=== PATIENT | female | born 1970 | race Caucasian/White ===

== ENCOUNTER 2016-08-23 13:30 | Emergency (ER) | payer OTHER ==
--- NOTE | 2016-08-30 07:12 | UC ---
Psychiatric Complaint HPI - HPI Summary HPI Summary: hx of anxiety and depression for years out of her meds requesting a refill of her medications - History Of Current Complaint Stated Complaint: MED REFILL Time Seen by Provider: 08/23/16 14:14 Hx Obtained From: Patient Hx Last Menstrual Period: 05/05/16 Onset/Duration: Gradual Onset, Still Present Timing: Constant Severity Initially: Moderate Severity Currently: Moderate Character: Depressed, Anxious Aggravating Factor(s): Nothing Alleviating Factor(s): Medication Related History: Positive For: Prior Psychiatric Issues Negative For: Drug Abuse Counseling, Admissions Related To Substance Abuse - Allergies/Home Medications Allergies/Adverse Reactions: Allergies Allergy/AdvReac Type Severity Reaction Status Date / Time No Known Allergies Allergy Verified 05/25/16 10:16 PMH/Surg Hx/FS Hx/Imm Hx Psychological History Of: Reports: Anxiety, Depression - Surgical History Surgical History: None - Family History Known Family History: Positive: Hypertension - Social History Alcohol Use: Occasionally Substance Use Type: None Smoking Status (MU): Never Smoked Tobacco Review of Systems Constitutional: Negative Skin: Negative Eyes: Negative ENT: Negative Respiratory: Negative Cardiovascular: Negative Gastrointestinal: Negative Psychological: Anxious, Depressed All Other Systems Reviewed And Are Negative: Yes Physical Exam Triage Information Reviewed: Yes Appearance: Well-Appearing, No Pain Distress, Well-Nourished Eye Exam: Normal Eyes: Positive: Conjunctiva Clear ENT: Positive: Normal ENT inspection, Hearing grossly normal, Pharynx normal Neck: Positive: Supple, Nontender, No Lymphadenopathy Respiratory: Positive: Chest non-tender, Lungs clear, Normal breath sounds Cardiovascular: Positive: RRR, No Murmur, Pulses Normal Abdominal Exam: Normal Psychological Exam: Normal Psychological: Positive: Age Appropriate Behavior Skin Exam: Normal UC Physical Exam - Psychiatric Exam Psychiatric: Normal Mood: Anxious Appearance: Anxious Thought Process: Logical Memory: Intact Judgement: Normal Psych Complaint Course/Dx - Differential Dx/Diagnosis Provider Diagnoses: anxiety Discharge - Discharge Plan Condition: Stable Disposition: HOME Prescriptions: Dextroamphetamine Sulfate [Zenzedi] 30 mg PO BID #60 tab MDD 60 daily Lorazepam [Ativan] 1 mg PO TID PRN #60 tab MDD 3 mg daily PRN Reason: Anxiety Venlafaxine CAP (NF) [Effexor CAP (NF)] 75 mg PO DAILY #30 tab Patient Education Materials: Anxiety (ED) Referrals: Non Staff,Doctor [Primary Care Provider] - As Soon As Possible
== END 2016-08-23 14:33 | disposition home or self-care (01) ==
LOC: UCCORT 13:30
DX: F41.9 Anxiety disorder, unspecified (principal)
CPT/HCPCS: 99212; G0463

== ENCOUNTER 2017-03-09 10:59 | Emergency (ER) | payer OTHER ==
[2017-03-09 11:08] VITALS: BP 122/86
--- NOTE | 2017-03-09 11:16 | UC ---
Complaint Female HPI - HPI Summary HPI Summary: complaint of burning with urination increased frequency and urgency of urination feells faitigued entire body feels achy states she might have had a fever taking tylenol for the last 4 days weith relief LMP 02/22/17-not sexually active - History Of Current Complaint Chief Complaint: UCGeneralIllness Stated Complaint: URINARY Time Seen by Provider: 03/09/17 11:05 Hx Obtained From: Patient Hx Last Menstrual Period: 02/22/17 - Allergies/Home Medications Allergies/Adverse Reactions: Allergies Allergy/AdvReac Type Severity Reaction Status Date / Time No Known Allergies Allergy Verified 03/09/17 11:07 PMH/Surg Hx/FS Hx/Imm Hx Previously Healthy: Yes Psychological History: Anxiety - Surgical History Surgical History: None - Family History Known Family History: Positive: Hypertension Negative: Cardiac Disease, Diabetes - Social History Occupation: Employed Full-time Lives: With Family Alcohol Use: Rare Substance Use Type: Prescribed Smoking Status (MU): Never Smoked Tobacco Review of Systems Constitutional: Fever, Chills Skin: Negative Eyes: Negative ENT: Negative Respiratory: Negative Cardiovascular: Negative Gastrointestinal: Negative Genitourinary: Dysuria, Frequency, Urgency Motor: Negative Neurovascular: Negative Musculoskeletal: Negative Neurological: Negative Psychological: Negative All Other Systems Reviewed And Are Negative: Yes Physical Exam Triage Information Reviewed: Yes Appearance: No Pain Distress, Well-Nourished Vital Signs: Initial Vital Signs Temp 97.8 F 03/09/17 11:03 Pulse 101 03/09/17 11:03 Resp 18 03/09/17 11:03 BP 122/86 03/09/17 11:03 Pulse Ox 98 03/09/17 11:03 Vital Signs Reviewed: Yes Eyes: Positive: Conjunctiva Clear ENT: Positive: Pharynx normal, TMs normal Neck: Positive: No Lymphadenopathy Respiratory: Positive: Lungs clear, Normal breath sounds, No respiratory distress, No accessory muscle use Cardiovascular: Positive: RRR, No Murmur, Pulses Normal Abdomen Description: Positive: Nontender, No Organomegaly, Soft. Negative: CVA Tenderness (R), CVA Tenderness (L), Distended, Guarding Musculoskeletal: Positive: No Edema Neurological: Positive: Alert Psychological Exam: Normal Skin Exam: Normal Complaint Female Dx - Differential Dx/Diagnosis Differential Diagnosis/HQI/PQRI: Urinary Tract Infection Provider Diagnoses: UTI Discharge - Discharge Plan Condition: Stable Disposition: HOME Prescriptions: Phenazopyridine TAB* [Pyridium 100 mg TAB*] 100 mg PO TID #6 tab Sulfamethox/Trimethoprim DS* [Bactrim DS 800/160 TAB*] 1 tab PO BID #6 tab Referrals: Non Staff,Doctor [Primary Care Provider] - [facility] [Outside] Additional Instructions: Please start antibiotic as directed Increase fluids and rest Take acetaminophen or ibuprofen for fever or pain Please review your discharge instructions. If your symptoms do not improve please call your primary care provider or return to urgent care.
== END 2017-03-09 11:35 | disposition home or self-care (01) ==
LOC: UCCORT 10:59
DX: N39.0 Urinary tract infection, site not specified (principal); R53.83 Other fatigue; F41.9 Anxiety disorder, unspecified
CPT/HCPCS: 81003; 87086; 99212; G0463

== ENCOUNTER 2017-03-12 10:56 | Inpatient (IN) | payer OTHER ==
[2017-03-12] MEDS ORDERED: Ondansetron INJ* 2 MG/ML VIAL IV ONE (11:19)
[2017-03-12] MEDS ORDERED: cefTRIAXone(*) 1 GM in NS 0.9% 50 ML* 50 ML IVPB ONE (11:19)
[2017-03-12 11:45] LABS: Hematocrit 41 % (35-47); Hemoglobin 13.6 g/dl (12.0-16.0); Mean Corpuscular HGB Conc 33 g/dl (31-36); Mean Corpuscular Hemoglobin 31 pg (27-31); Mean Corpuscular Volume 93 fL (80-97); Mean Platelet Volume 9 um3 (7.4-10.4); Red Cell Distribution Width 13 % (10.5-15); White Blood Count 16.7 10^3/ul (3.5-10.8)
[2017-03-12 11:46] LABS: Add Diff/Slide Review? Slide Review Added
[2017-03-12] MEDS: NS 0.9% 1000 ML* 2,000 ML IV ONE (11:49)
[2017-03-12 11:52] LABS: Albumin 3.4 g/dL (3.2-5.2); BUN/Creatinine Ratio 9.5 (8-20); C Reactive Protein 213.19 mg/L (< 5.00); Calcium 9.1 mg/dL (8.6-10.3); EGFR African American 107.7 (>60); EGFR Non-African American 83.8 (>60); Globulin 3.8 g/dL (2-4); Potassium 3.1 mmol/L (3.5-5.0); Total Bilirubin 0.5 mg/dL (0.2-1.0); Total Protein 7.2 g/dL (6.4-8.9)
--- NOTE | 2017-03-12 11:52 | RAD ---
Indication: Urinary tract infection. Tachycardia. Comparison: No relevant prior exams available on the [facility] for comparison. Technique: Upright AP 1120 hours Report: Clear lungs and pleural spaces. Negative for pneumothorax. The heart, pulmonary vasculature, and mediastinal contours are unremarkable. Unremarkable osseous structures and soft tissue contours. IMPRESSION: No evidence for acute intrathoracic disease.
[2017-03-12 12:16] LABS: Magnesium 1.9 mg/dL (1.9-2.7)
[2017-03-12 12:23] LABS: Erythrocyte Sed Rate 93 mm/Hr (0-14)
[2017-03-12] MEDS ORDERED: Potassium Chlor TAB* 20 MEQ TAB.ER PO ONE (12:28)
[2017-03-12] MEDS ORDERED: KCL 10 MEQ/50 ML IVPREMIX* 10 MEQ/50 ML BAG IV ONE (12:29)
[2017-03-12] MEDS ORDERED: Iohexol 350* (CONTRAST) 500 ML MDV IV ONE (13:09)
[2017-03-12] MEDS ORDERED: Acetaminophen TAB* 325 MG PO ONE (13:50)
[2017-03-12 13:55] LABS: Urine Bacteria 1+ (Absent); Urine Bilirubin Negative (Negative); Urine Glucose Negative (Negative); Urine Nitrite Positive (Negative)
--- NOTE | 2017-03-12 14:02 | RAD ---
INDICATION: Tachypnea. COMPARISON: Chest radiograph of the same date. TECHNIQUE: Multidetector CT images were obtained from the lung apices to the upper abdomen with 67 mL Omnipaque 350 IV contrast. Pulmonary angiogram protocol. Multiplanar reformation including with maximum intensity projection. REPORT: Atelectasis of the anteromedial basal segment of the LEFT lower lobe. Minimal bilateral dependent atelectasis. No focal pulmonary lesions. Negative for central endobronchial lesions. Negative for pleural effusion or pneumothorax. Negative for thoracic lymphadenopathy. Upper normal heart size. Negative for pericardial effusion. Normal diameter thoracic aorta. No filling defects are identified from the main to the subsegmental pulmonary arteries to indicate presence of a pulmonary embolism. Unremarkable Limited images through the upper abdomen. Negative for thoracic fractures or suspicious osseous lesions. IMPRESSION: 1. Negative for pulmonary embolism. 2. Atelectasis of the anteromedial basal segment of the LEFT lower lobe.
[2017-03-12] MEDS ORDERED: Phenazopyridine TAB* 100 MG PO PRN (15:07)
[2017-03-12] MEDS: NS 0.9% 1000 ML* 1,000 ML IV SCH (17:03)
--- NOTE | 2017-03-12 18:43 | ED ---
Reyna Fields Alfonso, scribed for Reed Harvey MD on 03/12/17 at 1119 . Abdominal Pain/Female - HPI Summary HPI Summary: This patient is a 46 year old F presenting to [facility] with a chief complaint of lower abdominal pain since this morning. The patient rates the pain 8/10 in severity. Symptoms aggravated and alleviated by nothing. 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 The patient reports fever, chills, diaphoresis, nausea, back pain, dizziness, tiredness, dysuria, and vaginal soreness. The patient denies CP, SOB, vomiting, diarrhea, and vaginal discharge. She reports taking abx for the last 3 days for a possible UTI. LNMP 02/22/17. PMHx of anxiety and depression. - History of Current Complaint Chief Complaint: EDGeneral Stated Complaint: POSSIBLE UTI Time Seen by Provider: 03/12/17 11:11 Hx Obtained From: Patient Hx Last Menstrual Period: 02/22/17 Onset/Duration: Sudden Onset, Lasting Hours - This morning, Still Present Timing: Constant Severity Initially: Moderate Severity Currently: Moderate Pain Intensity: 8 Pain Scale Used: 0-10 Numeric Location: Other - Lower Aggravating Factor(s): Nothing Alleviating Factor(s): Nothing Associated Signs and Symptoms: Positive: Other: - The patient reports fever, chills, diaphoresis, nausea, back pain, dizziness, tiredness, dysuria, and vaginal soreness. The patient denies CP, SOB, vomiting, diarrhea, and vaginal discharge. Allergies/Adverse Reactions: Allergies Allergy/AdvReac Type Severity Reaction Status Date / Time No Known Allergies Allergy Verified 03/12/17 11:19 Home Medications: Home Medications Dextroamphetamine TAB* [Dexedrine TAB*] 10 mg PO BID 03/12/17 [History Confirmed 03/12/17] PMH/Surg Hx/FS Hx/Imm Hx Sensory History: Denies: Hx Deafness Opthamlomology History: Denies: Hx Legally Blind Psychiatric History: Reports: Hx Anxiety, Hx Depression Infectious Disease History: Denies: Traveled Outside the [place] in Last 30 Days - Family History Known Family History: Positive: Hypertension Negative: Cardiac Disease, Diabetes - Social History Alcohol Use: Rare Substance Use Type: Reports: Prescribed Smoking Status (MU): Never Smoked Tobacco Review of Systems Positive: Fever, Chills, Skin Diaphoresis Negative: Chest Pain Negative: Shortness Of Breath Positive: Abdominal Pain - Lower, Nausea. Negative: Vomiting, Diarrhea Positive: other - Positive dysuria and vaginal soreness; negative vaginal discharge. Positive: Other - Positive back pain Neurological: Other - Positive dizziness and tiredness All Other Systems Reviewed And Are Negative: Yes Physical Exam - Summary Physical Exam Summary: VITAL SIGNS: Reviewed. GENERAL: Patient is a well-developed and nourished female who is lying comfortable in the stretcher. Patient is not in any acute respiratory distress. HEAD AND FACE: Normocephalic and atraumatic. EYES: PERRLA, EOMI x 2, No injected conjunctiva. EARS: Hearing grossly intact. Ear canals and tympanic membranes are WNL. MOUTH: Oropharynx within normal limits. NECK: Supple, trachea is midline, no adenopathy, no JVD. CHEST: Symmetric, no tenderness at palpation LUNGS: Clear to auscultation bilaterally. No wheezing or crackles. CVS: Tachycardia, S1 and S2 present, no murmurs or gallops appreciated. ABDOMEN: Soft, non-tender. No signs of distention. Positive bowel sounds. No rebound no guarding, and no masses palpated. No abdominal bruit or pulsations. EXTREMITIES: FROM in all major joints, no edema, no cyanosis or clubbing. NEURO: Alert and oriented x 3. No acute neurological deficits. Speech is normal. SKIN: Dry and warm Triage Information Reviewed: Yes Vital Signs On Initial Exam: Initial Vitals Temp Pulse Resp BP Pulse Ox 98.9 F 140 20 130/94 98 03/12/17 10:58 03/12/17 10:58 03/12/17 10:58 03/12/17 10:58 03/12/17 10:58 Vital Signs Reviewed: Yes Diagnostics - Vital Signs Vital Signs Temp Pulse Resp BP Pulse Ox 03/12/17 10:58 98.9 F 140 20 130/94 98 - Laboratory Lab Results: Lab Results 03/12/17 03/12/17 03/12/17 Range/Units 11:26 11:26 11:26 WBC 16.7 H (3.5-10.8) 10^3/ul RBC 4.40 (4.0-5.4) 10^6/ul Hgb 13.6 (12.0-16.0) g/dl Hct 41 (35-47) % MCV 93 (80-97) fL MCH 31 (27-31) pg MCHC 33 (31-36) g/dl RDW 13 (10.5-15) % Plt Count 312 (150-450) 10^3/ul MPV 9 (7.4-10.4) um3 Neut % (Auto) 76.1 (38-83) % Lymph % (Auto) 10.8 L (25-47) % [place] % (Auto) 12.5 H (1-9) % Eos % (Auto) 0.1 (0-6) % Baso % (Auto) 0.5 (0-2) % Absolute Neuts (auto) 12.7 H (1.5-7.7) 10^3/ul Absolute Lymphs (auto) 1.8 (1.0-4.8) 10^3/ul Absolute Monos (auto) 2.1 H (0-0.8) 10^3/ul Absolute Eos (auto) 0 (0-0.6) 10^3/ul Absolute Basos (auto) 0.1 (0-0.2) 10^3/ul Absolute Nucleated RBC 0.01 10^3/ul Nucleated RBC % 0 ESR 93 H (0-14) mm/Hr INR (Anticoag Therapy) 1.00 (0.89-1.11) APTT 27.4 (26.0-36.3) seconds Fibrinogen 542 H (110.8-404.3) mg/dL Sodium 129 L (133-145) mmol/L Potassium 3.1 L (3.5-5.0) mmol/L Chloride 94 L (101-111) mmol/L Carbon Dioxide 26 (22-32) mmol/L Anion Gap 9 (2-11) mmol/L BUN 7 (6-24) mg/dL Creatinine 0.74 (0.51-0.95) mg/dL Est GFR ( Amer) 107.7 (>60) Est GFR (Non-Af Amer) 83.8 (>60) BUN/Creatinine Ratio 9.5 (8-20) Glucose 97 (70-100) mg/dL Lactic Acid (0.5-2.0) mmol/L Calcium 9.1 (8.6-10.3) mg/dL Magnesium 1.9 (1.9-2.7) mg/dL Total Bilirubin 0.50 (0.2-1.0) mg/dL AST 81 H (13-39) U/L ALT 128 H (7-52) U/L Alkaline Phosphatase 332 H (34-104) U/L C-Reactive Protein 213.19 H (< 5.00) mg/L Total Protein 7.2 (6.4-8.9) g/dL Albumin 3.4 (3.2-5.2) g/dL Globulin 3.8 (2-4) g/dL Albumin/Globulin Ratio 0.9 L (1-3) Urine Color Urine Appearance Urine pH (5-9) Ur Specific [place] (1.010-1.030) Urine Protein (Negative) Urine Ketones (Negative) Urine Blood (Negative) Urine Nitrate (Negative) Urine Bilirubin (Negative) Urine Urobilinogen (Negative) Ur Leukocyte Esterase (Negative) Urine WBC (Auto) (Absent) Urine RBC (Auto) (Absent) Ur Squamous Epith Cells (Absent) Urine Bacteria (Absent) Urine Glucose (Negative) 03/12/17 03/12/17 Range/Units 11:26 13:20 WBC (3.5-10.8) 10^3/ul RBC (4.0-5.4) 10^6/ul Hgb (12.0-16.0) g/dl Hct (35-47) % MCV (80-97) fL MCH (27-31) pg MCHC (31-36) g/dl RDW (10.5-15) % Plt Count (150-450) 10^3/ul MPV (7.4-10.4) um3 Neut % (Auto) (38-83) % Lymph % (Auto) (25-47) % [place] % (Auto) (1-9) % Eos % (Auto) (0-6) % Baso % (Auto) (0-2) % Absolute Neuts (auto) (1.5-7.7) 10^3/ul Absolute Lymphs (auto) (1.0-4.8) 10^3/ul Absolute Monos (auto) (0-0.8) 10^3/ul Absolute Eos (auto) (0-0.6) 10^3/ul Absolute Basos (auto) (0-0.2) 10^3/ul Absolute Nucleated RBC 10^3/ul Nucleated RBC % ESR (0-14) mm/Hr INR (Anticoag Therapy) (0.89-1.11) APTT (26.0-36.3) seconds Fibrinogen (110.8-404.3) mg/dL Sodium (133-145) mmol/L Potassium (3.5-5.0) mmol/L Chloride (101-111) mmol/L Carbon Dioxide (22-32) mmol/L Anion Gap (2-11) mmol/L BUN (6-24) mg/dL Creatinine (0.51-0.95) mg/dL Est GFR ( Amer) (>60) Est GFR (Non-Af Amer) (>60) BUN/Creatinine Ratio (8-20) Glucose (70-100) mg/dL Lactic Acid 1.2 (0.5-2.0) mmol/L Calcium (8.6-10.3) mg/dL Magnesium (1.9-2.7) mg/dL Total Bilirubin (0.2-1.0) mg/dL AST (13-39) U/L ALT (7-52) U/L Alkaline Phosphatase (34-104) U/L C-Reactive Protein (< 5.00) mg/L Total Protein (6.4-8.9) g/dL Albumin (3.2-5.2) g/dL Globulin (2-4) g/dL Albumin/Globulin Ratio (1-3) Urine Color Rox Urine Appearance Clear Urine pH 7.0 (5-9) Ur Specific [place] 1.012 (1.010-1.030) Urine Protein Negative (Negative) Urine Ketones Negative (Negative) Urine Blood Negative (Negative) Urine Nitrate Positive H (Negative) Urine Bilirubin Negative (Negative) Urine Urobilinogen Negative (Negative) Ur Leukocyte Esterase Trace H (Negative) Urine WBC (Auto) 1+(6-10/hpf) H (Absent) Urine RBC (Auto) Absent (Absent) Ur Squamous Epith Cells Present H (Absent) Urine Bacteria 1+ H (Absent) Urine Glucose Negative (Negative) Result Diagrams: 03/12/17 11:26 03/12/17 11:26 Lab Statement: Any lab studies that have been ordered have been reviewed, and results considered in the medical decision making process. - Radiology CXR Radiology Interpretation Completed By: Radiologist - No evidence for acute intrathoracic disease. - CT CTA Chest/Thorax CT Interpretation Completed By: Radiologist - 1. Negative for pulmonary embolism. 2. Atelectasis of the anteromedial basal segment of the LEFT lower lobe. - EKG 1111 Cardiac Rate: Tachycardia - BPM 128 EKG Rhythm: Sinus Tachycardia EKG Interpretation: No ST elevation Re-Evaluation - Re-Evaluation First Eval Re-Evaluation Time: 12:59 Change: Improved Comment: Patient states she is feeling improved. She denies SOB. She denies recent travels. She does report bilateral calf pain. Second Eval Re-Evaluation Time: 14:04 Comment: Discussed possible admission with the patient. She understands and agrees. Abdominal Pain Fem Course/Dx - Course Course Of Treatment: This patient is a 46 year old F presenting to [facility] with a chief complaint of lower abdominal pain since this morning. The patient rates the pain 8/10 in severity. Symptoms aggravated and alleviated by nothing. 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 The patient reports fever, chills, diaphoresis, nausea, back pain, dizziness, tiredness, dysuria, and vaginal soreness. The patient denies CP , SOB, vomiting, diarrhea, and vaginal discharge. She reports taking abx for the last 3 days for a possible UTI. LNMP 02/22/17. PMHx of anxiety and depression. Test results show WBC 16.7 without bands, Fibrinogen of 542, Sodium of 129, potassium of 3.1, CRP of 213, and increased LFTs. Urinalysis positive for UTI. EKG reveals sinus tachycardia. CXR reveals No evidence for acute intrathoracic disease. In the ED course the patient was started with 2 liters IV fluid, Zofran, Rocephin, and potassium chloride. Patient continues to be tachycardia, and now she is febrile and tachypneic. At this time, I decide do a CTA to rule out PE since the patient was having bilateral calf pain. CTA Chest/Thorax reveals 1. Negative for pulmonary embolism. 2. Atelectasis of the anteromedial basal segment of the LEFT lower lobe. At this point, I believe the patient is dealing with UTI/ pyelonephritis. Therefore, I consulted Dr. Esquivel ( hospitalist) who agrees to admit the patient. Patient is alert and oriented to person, place, and time. - Diagnoses Differential Diagnosis: Positive: Renal Colic, Urinary Tract Infection, Other - Pyelonephritis Provider Diagnoses: UTI (urinary tract infection), Pyelonephritis - Provider Notifications Discussed Care Of Patient With: Fco Esquivel Time Discussed With Above Provider: 14:14 Instructed by Provider To: Other - Consulted Dr. Esquivel (hospitalist) who agrees to admit the patient. Discharge - Discharge Plan Condition: Stable Disposition: ADMITTED TO [facility] documentation as recorded by the Reyna harris Alfonso accurately reflects the service I personally performed and the decisions made by Wes aguilar Walter, MD.
[2017-03-12] MEDS ORDERED: LORazepam TAB(*) 1 MG PO PRN (19:33)
[2017-03-12] MEDS: Acetaminophen TAB* 325 MG PO PRN (20:20)
--- NOTE | 2017-03-12 20:50 | RAD ---
Indication: Dysuria, fever. Comparison: March 12, 2017 CT chest with only limited inclusion of the upper pole of the LEFT kidney. Technique: Renal ultrasound. Report: 12.7 x 6.8 x 6.5 cm RIGHT kidney. 12.8 x 5.6 x 6.1 cm LEFT kidney. Normal bilateral renal cortical echogenicity. No conspicuous stones or hydronephrosis. No visualized focal renal lesions. Negative for perinephric fluid. IMPRESSION: Negative renal ultrasound.
[2017-03-12] MEDS ORDERED: DEXTROAMPHETAMINE SULFATE 30 MG PO SCH (21:00)
[2017-03-12] MEDS ORDERED: DEXTROAMPHETAMINE 5 MG PO SCH (21:00)
[2017-03-12] MEDS: Ciprofloxacin TAB* 500 MG PO SCH (22:38)
--- NOTE | 2017-03-13 00:08 | HP ---
HOSPITAL MEDICINE HISTORY AND PHYSICAL: DATE OF ADMISSION: 03/12/17 PRIMARY CARE PHYSICIAN: None. ATTENDING PHYSICIAN: Dr. Fco Esquivel * (dictation provided by Hernandez Toth NP ). CHIEF COMPLAINT: Fever and dysuria. HISTORY OF PRESENT ILLNESS: Ms. Cruz is a 46-year-old female with a past medical history of urinary tract infection, depression, and anxiety who presented to the hospital today with concern for fever and dysuria. Ms. Cruz states that she originally was seen at [facility] on 03/09/17 for a complaint of dysuria. She had had at that point dysuria with lower abdominal pain for about 4 days. She had an UA there, which is reported to be positive and was prescribed Bactrim therapy. The patient reports that she completed a 3- day course of Bactrim, but despite this she has continued to have dysuria and lower abdominal pain. She is also now having fevers with chills. She reports feeling achy all over, but no specific back pain. She has been tolerating oral intake and drinking plenty of fluids. She denies any other complaints. In the emergency room, Mr. Cruz had a repeat urinalysis, which was positive for nitrite and trace leuk esterase. She was tachycardic with a heart rate running as high as 125. Blood pressure is stable, systolically running one teens to 150s. She has a white blood cell count elevated to 16.7, CRP of 213.19 , and then the ESR of 93. She also was mildly hypokalemic and hyponatremic with a sodium of 129 and a potassium of 3.1. PAST MEDICAL HISTORY: 1. UTI. 2. Depression. 3. Anxiety. MEDICATIONS: As outpatient: 1. Dextroamphetamine 40 mg p.o. b.i.d. 2. Ibuprofen 400 mg p.o. q.6 hours p.r.n. 3. Lorazepam 1 mg p.o. t.i.d. p.r.n. 4. Venlafaxine 25 mg p.o. daily. ALLERGIES: No known drug allergies. FAMILY HISTORY: The patient is adopted and does not know any other family history. SOCIAL HISTORY: No report of tobacco or drug use. The patient drinks alcohol occasionally. She lives with her son and . She states her would be the healthcare proxy. REVIEW OF SYSTEMS: A 14-point review of systems was completed with Ms. Cruz , and all those not mentioned above were negative. PHYSICAL EXAMINATION GENERAL: She is sitting at the bed. She is in no acute distress. VITAL SIGNS: Heart rate on arrival is 133. It is down now to 115. Blood pressure is currently 114/66, respiratory rate 22, O2 saturation 97% on room air. LUNGS: Clear to auscultation bilaterally with no accessory muscle use and good aeration. HEART: S1, S2. No murmur, rub, or gallop, and regular. ABDOMEN: Soft, nontender with bowel sounds positive x4. There is no CVA tenderness. EXTREMITIES: No cyanosis or edema. NEUROLOGIC: She is alert. She is oriented x3. She moves all extremities equally. There is no facial asymmetry or focal weakness. Extraocular movements are intact. SKIN: Intact. DIAGNOSTIC STUDIES/LAB DATA: Sodium 129, potassium 3.1, chloride 94, serum bicarbonate 26, BUN 7, creatinine 0.74, glucose 97, magnesium 1.9, AST 81, ALT 128, alk phos 332. CRP 213.19. Urine shows positive nitrite and leuk esterase. Chest x-ray shows no acute intrathoracic process and chest thorax CTA shows "negative for pulmonary embolism, atelectasis of anteromedial basal cell segment of the left lower lobe." ASSESSMENT: Ms. Cruz is a 46-year-old female with past medical history for UTI infrequently as well as depression and anxiety, who presents to the hospital today with concern for dysuria and fever despite treatment with antibiotics for UTI outpatient. Plans are for observation in the hospital for the followin. Pyelonephritis: The patient continues to have dysuria, lower abdominal pain with fever and chills as well as tachycardia with concern for pyelonephritis. She does meet sepsis criteria via SIRS criteria but qSOFA. She has failed outpatient treatment with Bactrim. Unfortunately, the urine sample obtained on 03/09/17 was contaminated and there are therefore no culture results from that. I suspect that she has failed treatment due to lack of sensitivity for bacteria, but will have to wait repeat urine culture which was drawn today. The patient does not have any CVA tenderness, but based on the severity of her markers of infection, I do plan to order a renal ultrasound to rule out severe pyelonephritis, abscess, or hydronephrosis. 2. Elevated LFTs: I am not sure why her LFTs are elevated, but we will recheck them all in the morning. Perhaps, this is just related to infection. If they remain elevated, would consider a liver ultrasound. 3. Anxiety and depression: Continue home medication regimen. 4. DVT prophylaxis with early mobility. 5. Disposition to the medical floor. TIME SPENT: Approximately 60 minutes was spent on admission of this patient; more than half time was spent with the patient at the bedside reviewing the events leading up to this hospitalization, performing the physical examination, and reviewing my plan of care. HERNANDEZ TOTH NP [id number]/CPS #: [id number] PAOLO
[2017-03-13] MEDS: NS 0.9% 1000 ML* 1,000 ML IV SCH ×3 (01:03→20:19)
[2017-03-13] MEDS: Acetaminophen TAB* 325 MG PO PRN (03:05)
[2017-03-13 06:18] LABS: Hematocrit 35 % (35-47); Hemoglobin 11.6 g/dl (12.0-16.0); Mean Corpuscular HGB Conc 34 g/dl (31-36); Mean Corpuscular Hemoglobin 32 pg (27-31); Mean Corpuscular Volume 94 fL (80-97); Mean Platelet Volume 8 um3 (7.4-10.4); Red Blood Count 3.68 10^6/ul (4.0-5.4); Red Cell Distribution Width 14 % (10.5-15); White Blood Count 15.7 10^3/ul (3.5-10.8)
[2017-03-13 06:25] LABS: BUN/Creatinine Ratio 9.1 (8-20); Calcium 8.1 mg/dL (8.6-10.3); EGFR African American 151.7 (>60); Globulin 3.2 g/dL (2-4); Potassium 3.6 mmol/L (3.5-5.0); Total Bilirubin 0.4 mg/dL (0.2-1.0); Total Protein 6.2 g/dL (6.4-8.9)
[2017-03-13] MEDS: CMC:Venlafaxine TAB (NF) 25 MG TAB PO SCH (07:24)
[2017-03-13] MEDS: Ciprofloxacin TAB* 500 MG PO SCH ×2 (07:24→20:24)
[2017-03-13] MEDS ORDERED: Al Hydrox/Mg Hydrox/Simet LIQ* 30 ML UDC PO PRN (10:58)
--- NOTE | 2017-03-13 14:08 | PN ---
Subjective Date of Service: 03/13/17 Interval History: HOSPITALIST PROGRESS NOTE Patient seen and examined at bedside. She feels a little better today, but very tired. Still has dysuria and frequency. Family History: Unchanged from Admission Social History: Unchanged from Admission Past Medical History: Unchanged from Admission Objective Active Medications: Acetaminophen (Tylenol Tab*) 650 mg PO Q6H PRN PRN Reason: pain/fever Last Admin: 03/13/17 03:05 Dose: 650 mg Al Hydrox/Mg Hydrox/Simethicone (Maalox Plus*) 30 ml PO Q6H PRN PRN Reason: INDIGESTION Ciprofloxacin (Cipro Tab*) 500 mg PO Q12HR [facility] Last Admin: 03/13/17 07:24 Dose: 500 mg Sodium Chloride (Ns 0.9% 1000 Ml*) 1,000 mls @ 150 mls/hr IV PER RATE [facility] Last Admin: 03/13/17 09:29 Dose: 150 mls/hr Lorazepam (Ativan Tab(*)) 1 mg PO TID PRN PRN Reason: ANXIETY Phenazopyridine HCl (Pyridium Tab*) 100 mg PO TID PRN PRN Reason: dysuria Venlafaxine HCl (Effexor Tab (Nf)) 25 mg PO DAILY [facility] Last Admin: 03/13/17 07:24 Dose: 25 mg Vital Signs 03/13/17 03/13/17 07:30 08:00 Temperature 97.6 F Pulse Rate 97 Respiratory 18 Rate Blood Pressure 138/90 (mmHg) O2 Sat by Pulse 98 98 Oximetry Oxygen Devices in Use Now: None Appearance: Young lady lying in bed in [facility]. Eyes: No Scleral Icterus Ears/Nose/Mouth/Throat: Mucous Membranes Moist Neck: Trachea Midline Respiratory: Symmetrical Chest Expansion and Respiratory Effort, Clear to Auscultation Cardiovascular: RRR - Normal S1 and S2 Abdominal: NL Sounds; No Tenderness; No Distention, - - No CVA tenderness Extremities: No Edema Neurological: Alert and Oriented x 3, NL Muscle Strength and Tone Lines/Tubes/Other Access: Clean, Dry and Intact Peripheral IV Nutrition: Taking PO's Result Diagrams: 03/13/17 05:57 03/13/17 05:57 Assess/Plan/Problems-Billing Assessment: Mrs. Cruz is a 46yo F with PMH of depression, anxiety, who presented to ED with c/o fever and dysuria, found to have UTI (failed outpatient therapy). - Patient Problems (1) Sepsis Comment: - Met sepsis criteria on admission with fever, tachycardia, leukocytosis. - Source is UTI. - Continue IVF. (2) UTI (urinary tract infection) Comment: - Cultures so far show no growth. - Continue Ciprofloxacin #2. - Renal US showed no hydro or nephrolithiasis. (3) Transaminitis Comment: - Mild. Likely associated with infection, but will check RUQ US and hepatitis serologies. (4) Depression Comment: - Continue Venlafaxine. (5) Anxiety Comment: - Lorazepam. (6) Full code status Status and Disposition: Change to inpatient.
--- NOTE | 2017-03-13 18:48 | RAD ---
HISTORY: Abdominal pain COMPARISONS: CTA of the chest dated 717 that partially visualizes a low-density lesion in the right lobe of the liver TECHNIQUE: Multiple transverse and longitudinal ultrasound images were obtained of the right upper quadrant. FINDINGS: LIVER: The left lobe of the liver there is a hyperechoic and minimally vascular structure measuring 4.7 x 3.9 x 4.4 cm that corresponds to the same day CT of the chest that partially visualizes the left lobe of the liver. In the right lobe of the liver there are 2 hyperechoic and essentially avascular structures measuring 1.3 x 1.1 x 1.3 cm and 1.0 x 1.1 x 1.0 cm. There is no gross intrahepatic biliary duct dilatation. GALLBLADDER AND EXTRAHEPATIC BILIARY DUCT: The gallbladder is normal in appearance without intraluminal stones or other soft tissue masses. There is no pericholecystic fluid or gallbladder wall thickening. The common bile duct measures a maximum diameter of 5 mm. PANCREAS: The portions of the pancreas not obscured by bowel gas are normal in appearance. RIGHT KIDNEY: The right kidney is normal in size, morphology and echogenicity. AORTA AND IVC: The visualized portions are normal in appearance and not pathologically dilated. IMPRESSION: 1. NO ULTRASOUND EVIDENCE OF CHOLELITHIASIS OR ACUTE BILIARY OBSTRUCTION. 2. AT LEAST 3 HYPERECHOIC LIVER LESIONS EXHIBITING LITTLE TO NO VASCULARITY ARE VISUALIZED, THE LARGEST IN THE LEFT LOBE MEASURING 4.7 CM IN GREATEST DIMENSION. A BENIGN ETIOLOGY SUCH HEMANGIOMA IS FAVORED, BUT FURTHER NONEMERGENT CHARACTERIZATION CAN BE MADE WITH EITHER FOUR-PHASE CT OF THE ABDOMEN OR CONTRAST-ENHANCED MRI OF THE ABDOMEN.
[2017-03-14] MEDS: NS 0.9% 1000 ML* 1,000 ML IV SCH (03:03)
[2017-03-14 06:10] LABS: Hematocrit 37 % (35-47); Hemoglobin 12.4 g/dl (12.0-16.0); Mean Corpuscular HGB Conc 34 g/dl (31-36); Mean Corpuscular Hemoglobin 32 pg (27-31); Mean Corpuscular Volume 94 fL (80-97); Mean Platelet Volume 8 um3 (7.4-10.4); Red Blood Count 3.91 10^6/ul (4.0-5.4); Red Cell Distribution Width 13 % (10.5-15); White Blood Count 12.4 10^3/ul (3.5-10.8)
[2017-03-14 06:25] LABS: Albumin 3.3 g/dL (3.2-5.2); C Reactive Protein 155.4 mg/L (< 5.00); Calcium 8.6 mg/dL (8.6-10.3); EGFR African American 169.4 (>60); EGFR Non-African American 131.7 (>60); Globulin 3.5 g/dL (2-4); Total Bilirubin 0.3 mg/dL (0.2-1.0); Total Protein 6.8 g/dL (6.4-8.9)
[2017-03-14 07:49] LABS: Potassium 3.5 mmol/L (3.5-5.0)
[2017-03-14 08:20] VITALS: BP 153/96
[2017-03-14] MEDS: CMC:Venlafaxine TAB (NF) 25 MG TAB PO SCH (08:24)
[2017-03-14] MEDS: Ciprofloxacin TAB* 500 MG PO SCH (08:24)
--- NOTE | 2017-03-15 05:30 | DS ---
DISCHARGE SUMMARY: DATE OF ADMISSION: 03/12/17 DATE OF DISCHARGE: 03/14/17 PRIMARY CARE PHYSICIAN: The patient has no primary care provider at this point , but this will be arranged. DISCHARGE DIAGNOSES: 1. Sepsis, present on admission. 2. Urinary tract infection with probable pyelonephritis. 3. Transaminitis, likely secondary to sepsis or secondary to Bactrim use. SECONDARY DIAGNOSES: 1. Depression. 2. Anxiety. MEDICATION LIST: 1. Venlafaxine 25 mg p.o. daily. 2. Dexedrine 10 mg p.o. b.i.d. 3. Zenzedi 30 mg p.o. b.i.d. 4. Lorazepam 1 mg p.o. t.i.d. as needed for anxiety. 5. Ibuprofen 400 mg p.o. q. 6 hours p.r.n. pain. 6. Pyridium 100 mg p.o. t.i.d. as needed for dysuria. 7. Ciprofloxacin 500 mg p.o. q. 12 hours for 2 more weeks. 8. Acetaminophen 650 mg p.o. q. 6 p.r.n. pain or fever. HOSPITAL COURSE: Ms. Cruz is a 46-year-old lady with a past medical history as stated above that presented to the emergency room with complaints of fever and dysuria. She was seen at [facility] on 03/09/17 for complaints of dysuria and hypogastric pain that had started 4 days prior to the visit. She had a urinalysis done that was positive with trace blood in the urine and wbc's and a urine culture done at that time showed mixed karena and possible contamination. The patient was discharged on Bactrim and completed a 3-day course. She said that initially she had some improvement, but then the dysuria continued, the hypogastric pain too and this was now associated with fever, chills, and some mild back pain. She presented to the emergency room for further evaluation and she was found to be tachycardic with a heart rate of 140. Other abnormalities were also found on her lab tests including leukocytosis, elevated ESR, elevated CRP, elevation of transaminases and for that reason hospitalist service was consulted for admission. The patient was started empirically on ciprofloxacin. A chest x-ray was performed and it showed no evidence for acute intrathoracic disease. A CTA of the chest was negative for pulmonary embolism and it showed only atelectasis of anteromedial basal segment of the left lower lobe. A renal ultrasound showed no conspicuous stones or hydronephrosis. No perinephric fluid. The patient became afebrile, had improvement of her leukocytosis, down to 12.4, improvement of her transaminases and CRP. As the patient had already been partially treated, all her cultures (blood and urine) done during this admission have showed no growth so far. As the patient had elevation of her transaminases, a right upper quadrant ultrasound was performed and it was negative for cholelithiasis or acute biliary obstruction. There was incidental finding of 3 hypoechoic liver lesions exhibiting little to no vascularity. The largest in the left measured 4.7 cm. A benign etiology such as hemangioma is favored. Thus, further nonemergent characterization can be made with either 4-phase CT of the abdomen or contrast enhanced MRI of the abdomen. Those tests can be pursued by her primary care provider as outpatient. The patient had significant improvement of her symptoms and she was felt to be stable for discharge. Arrangements will be made, so she can see a primary care provider for followup. The patient's tachycardia had improved, but she states that she always has some degree of tachycardia at baseline and I believe this is likely secondary to dextroamphetamine use. The patient states that she will talk to her psychiatrist as she wants to be weaned off those medications. PHYSICAL EXAMINATION: Vital Signs: Temperature 98.4, heart rate is 90, respiratory rate is 16, oxygen saturation 99% on room air, and blood pressure is 145/82. General: The patient is a pleasantly lady, sitting up in bed, in no acute distress. CVS: Normal S1, S2. Regular rate and rhythm. Chest: Breath sounds present bilaterally with no added sounds. Abdomen: Soft, nontender. There is no CVA tenderness. Extremities: No edema. Neuro: She is alert and oriented x3. Able to move all 4 extremities. DIET: Regular diet. ACTIVITIES: As tolerated. DISPOSITION: To home inpatient. Please keep in mind that this is a summarized version of this patient's hospital stay. If you need more information, please feel free to call me at [phone] or please obtain the full medical records. TIME SPENT: Approximately 45 minutes were spent to complete this discharge. [id number]/[facility] #: [id number] [facility]ISCH HOSPITALBernardo
== END 2017-03-14 10:15 | disposition home or self-care (01) | DRG 720 ==
LOC: ED 10:56 → MED 15:04 → OBSVTOIN 03-13 14:07
PROVIDERS: ADMIT Internal Medicine; ATTEND Internal Medicine
DX: A41.9 Sepsis, unspecified organism (principal); E87.1 Hypo-osmolality and hyponatremia; N39.0 Urinary tract infection, site not specified; N12 Tubulo-interstitial nephritis, not specified as acute or chronic; R74.0 Nonspecific elevation of levels of transaminase and lactic acid dehydrogenase [LDH]; E87.6 Hypokalemia; F32.9 Major depressive disorder, single episode, unspecified; F41.9 Anxiety disorder, unspecified; Z79.1 Long term (current) use of non-steroidal anti-inflammatories (NSAID); Z79.899 Other long term (current) drug therapy
CPT/HCPCS: 36415; 71010; 71275; 76705; 76775; 80053; 80074; 81003; 81015; 83605; 83735; 85025; 85384; 85610; 85652; 85730; 86140; 87040; 87086; 93005; A9270-GY; G0378; J0696; J2405; J3480; Q9967

== ENCOUNTER 2017-03-24 21:59 | Emergency (ER) | payer OTHER ==
[2017-03-24] MEDS ORDERED: NS 0.9% 1000 ML* 2,000 ML IV ONE (23:06)
[2017-03-24] MEDS ORDERED: Acetaminophen TAB* 325 MG PO ONE (23:12)
[2017-03-24 23:30] LABS: Hematocrit 41 % (35-47); Hemoglobin 13.6 g/dl (12.0-16.0); Mean Corpuscular HGB Conc 33 g/dl (31-36); Mean Corpuscular Hemoglobin 31 pg (27-31); Mean Corpuscular Volume 93 fL (80-97); Mean Platelet Volume 8 um3 (7.4-10.4); Red Cell Distribution Width 14 % (10.5-15); White Blood Count 12.2 10^3/ul (3.5-10.8)
[2017-03-24 23:31] LABS: Add Diff/Slide Review? Slide Review Added; Comments Flag Yes
[2017-03-24 23:44] LABS: ALT 34 U/L (7-52); AST 19 U/L (13-39); Albumin 4.2 g/dL (3.2-5.2); Alkaline Phosphatase 142 U/L (34-104); Anion Gap 8 mmol/L (2-11); BUN/Creatinine Ratio 17.8 (8-20); Blood Urea Nitrogen 18 mg/dL (6-24); CO2 Carbon Dioxide 25 mmol/L (22-32); Calcium 9.2 mg/dL (8.6-10.3); Chloride 105 mmol/L (101-111); Creatine Kinase 73 U/L (10-223); EGFR African American 75.2 (>60); EGFR Non-African American 58.5 (>60); Globulin 3.6 g/dL (2-4); Glucose 95 mg/dL (70-100); Magnesium 2.3 mg/dL (1.9-2.7); Potassium 3.5 mmol/L (3.5-5.0); Sodium 138 mmol/L (133-145); Total Protein 7.8 g/dL (6.4-8.9)
[2017-03-25 01:32] LABS: Urine Bilirubin Negative (Negative); Urine Glucose Negative (Negative); Urine Nitrite Negative (Negative)
[2017-03-25] MEDS ORDERED: NS 0.9% 1000 ML* 1,000 ML IV ONE (01:55)
--- NOTE | 2017-03-25 02:22 | ED ---
Leticia Fields SooYoung, scribed for Alberto Arellano on 03/24/17 at 2306 . Headache - HPI Summary HPI Summary: A 46 y/o F presents to ED with c/o severe FENTON onset [employer]EM[employer], mostly resolved. Associated sx: extremity pain, confusion, weakness. Denies CP, abd pain. Pt states she had a UTI two and a half weeks ago. Pt was admitted to [facility] and released on 03/14/17. She states she hasn't quite gotten better since. She states eating and drinking well. - History Of Current Complaint Chief Complaint: EDHeadache Stated Complaint: HEADACHE Time Seen by Provider: 03/24/17 22:59 Hx Obtained From: Patient Hx Last Menstrual Period: 02/22/17 Onset/Duration: Started hours ago, Still Present Currently Pain Is: Current Pain Scale(0-10)= - 3, Mild Timing: Constant Associated Signs And Symptoms: Other (Noted In Comments) - pos: extremity pain, confusion, weakness; neg: CP, abd pain - Allergies/Home Medications Allergies/Adverse Reactions: Allergies Allergy/AdvReac Type Severity Reaction Status Date / Time No Known Allergies Allergy Verified 03/12/17 11:19 PMH/Surg Hx/FS Hx/Imm Hx Previously Healthy: No Respiratory History: Reports: Hx Asthma Sensory History: Reports: Hx Contacts or Glasses Denies: Hx Legally Blind, Hx Deafness, Hx Hearing Aid Opthamlomology History: Reports: Hx Contacts or Glasses Denies: Hx Legally Blind Psychiatric History: Reports: Hx Anxiety, Hx Depression Infectious Disease History: No Infectious Disease History: Denies: Hx Clostridium Difficile, Hx Human Immunodeficiency Virus (HIV), Hx of Known/Suspected MRSA, Hx Known/Suspected VRE, Traveled Outside the [place] in Last 30 Days - Family History Known Family History: Positive: Hypertension Negative: Cardiac Disease, Diabetes - Social History Occupation: Employed Full-time Lives: With Family Alcohol Use: Rare Hx Substance Use: Yes Substance Use Type: Reports: Prescribed Hx Tobacco Use: No Smoking Status (MU): Never Smoked Tobacco Review of Systems Negative: Chest Pain Negative: Abdominal Pain Positive: Other - pos: "extremity pain" Neurological: Other - pos: confusion Positive: Headache, Weakness All Other Systems Reviewed And Are Negative: Yes Physical Exam Triage Information Reviewed: Yes Vital Signs On Initial Exam: Initial Vitals Temp Pulse Resp BP Pulse Ox 97.1 F 108 20 157/99 97 03/24/17 22:14 03/24/17 22:14 03/24/17 22:14 03/24/17 22:14 03/24/17 22:14 Vital Signs Reviewed: Yes Appearance: Positive: Well-Appearing, No Pain Distress Skin: Positive: Warm, Skin Color Reflects Adequate Perfusion, Dry Head/Face: Positive: Normal Head/Face Inspection Eyes: Positive: EOMI, RICHARD ENT: Positive: Other - dry mucous membranes Neck: Positive: Supple, Nontender Respiratory/Lung Sounds: Positive: Clear to Auscultation, Breath Sounds Present Cardiovascular: Positive: Pulses are Symmetrical in both Upper and Lower Extremities, Tachycardia Abdomen Description: Positive: Nontender, Soft Musculoskeletal: Positive: Normal, Strength/ROM Intact Neurological: Positive: Normal, Sensory/Motor Intact, Alert, Oriented to Person Place, Time Diagnostics - Vital Signs Vital Signs Temp Pulse Resp BP Pulse Ox 03/24/17 22:18 97.1 F 108 18 157/99 100 03/24/17 22:14 97.1 F 108 20 157/99 97 - Laboratory Result Diagrams: 03/24/17 23:20 03/24/17 23:20 Lab Statement: Any lab studies that have been ordered have been reviewed, and results considered in the medical decision making process. - Radiology CXR Xray Interpretation: No Acute Changes Radiology Interpretation Completed By: ED Physician - CT HEAD CT CT Interpretation: No Acute Changes - IMPRESSION: No acute intracranial abnormality. CT Interpretation Completed By: Radiologist - EKG 0003 Cardiac Rate: Tachycardia - 106bpm EKG Rhythm: Sinus Tachycardia EKG Interpretation: non-specific T wave changes Re-Evaluation - Re-Evaluation 1 Re-Evaluation Time: 01:53 Change: Unchanged Comment: Discussing results and dispo with pt. Pt is still tachy. Will order Ddimer Headache Course/Dx - Course Course Of Treatment: A 46 y/o F presents to ED with c/o severe FENTON onset [employer]RAKEM[employer], mostly resolved. Associated sx: extremity pain, confusion, weakness. Denies CP, abd pain. Pt states she had a UTI two and a half weeks ago. Pt was admitted to [facility] and released on 03/14/17. She states she hasn't quite gotten better since. She states eating and drinking well. Pt given Tylenol and fluids in ED. Bloodwork and lab results are without significant abnormalities. UA results are negative. EKG is sinus tachy with non-specific T-wave changes. CXR shows no acute findings. Brain CT is negative. DDimer is negative. Pt is still tachycardic. Pt is requesting to go home, declining fluids. Will D/C home to f/ u with her PCP. - Diagnoses Provider Diagnoses: Headache, Weakness Discharge - Discharge Plan Condition: Stable Disposition: HOME Patient Education Materials: Weakness (ED), General Headache (ED) Referrals: Zay Kim MD [Primary Care Provider] - 3 Days Additional Instructions: Follow up with your primary care provider in the next 3 days. Please return to the ED if you experience new or worsening symptoms. The documentation as recorded by the Leticia harris SooYoung accurately reflects the service I personally performed and the decisions made by me, Alberto Arellano.
[2017-03-25 02:26] VITALS: BP 167/99
--- NOTE | 2017-03-25 07:40 | RAD ---
HISTORY: Headache COMPARISONS: None TECHNIQUE: Multiple contiguous axial CT scans were obtained of the head without intravenous contrast. FINDINGS: HEMORRHAGE/INFARCT: There is no hemorrhage or acute infarct. MASSES/SHIFT: There is no mass or shift. EXTRA-AXIAL SPACES: There are no extra-axial fluid collections. SULCI AND VENTRICLES: The sulci and ventricles are normal in size and position for the patient's stated age. CEREBRUM: There are no focal parenchymal abnormalities. BRAINSTEM: There are no focal parenchymal abnormalities. CEREBELLUM: There are no focal parenchymal abnormalities. VESSELS: The vessels are grossly normal. PARANASAL SINUSES: The paranasal sinuses are clear. ORBITS: The orbits are unremarkable. BONES AND SOFT TISSUE: No bone or soft tissue abnormalities are noted. OTHER: None IMPRESSION: NO ACUTE INTRACRANIAL PATHOLOGY.
--- NOTE | 2017-03-25 07:40 | RAD ---
HISTORY: Fever COMPARISONS: March 12, 2017 VIEWS: 4: Frontal dual-energy and lateral views of the chest. FINDINGS: CARDIOMEDIASTINAL SILHOUETTE: The cardiomediastinal silhouette is normal. RAGHAV: The raghav are normal. PLEURA: The costophrenic angles are sharp. No pleural abnormalities are noted. LUNG PARENCHYMA: The lungs are clear. ABDOMEN: The upper abdomen is clear. There is no subphrenic gas. BONES AND SOFT TISSUES: No bone or soft tissue abnormalities are noted. OTHER: None. IMPRESSION: NO ACTIVE CARDIOPULMONARY DISEASE.
== END 2017-03-25 02:27 | disposition home or self-care (01) ==
LOC: ED 21:59
DX: R51 Headache (principal); R53.1 Weakness; R41.0 Disorientation, unspecified
CPT/HCPCS: 36415; 70450; 71020; 80053; 81003; 82550; 83605; 83735; 83880; 84484; 84702; 85025; 85379; 85610; 85730; 87040; 93005; 99282; A9270-GY

== ENCOUNTER 2017-08-06 09:13 | Emergency (ER) | payer OTHER ==
[2017-08-06 10:06] VITALS: BP 152/98
--- NOTE | 2017-08-06 10:41 | UC ---
[facility] HPI - HPI Summary HPI Summary: had a root canal on left upper first molar---5 days ago---patient was not put on antibiotics---has purulent drainage and swelling-- - History of Current Complaint Chief Complaint: UCDentalProblem Stated Complaint: DENTAL PAIN S/P ROOT CANAL Time Seen by Provider: 08/06/17 10:16 Hx Obtained From: Patient Hx Last Menstrual Period: 02/22/17 ?: No Onset/Duration: Gradual Onset, Lasting Days - 5, Still Present, Worse Since - begining last night Severity: Moderate Pain Intensity: 6 Pain Scale Used: 0-10 Numeric Aggravating Factor(s): Nothing Alleviating Factor(s): Nothing Related History: Previous Dental Care on Same Tooth, Swelling - Allergies/Home Medications Allergies/Adverse Reactions: Allergies Allergy/AdvReac Type Severity Reaction Status Date / Time No Known Allergies Allergy Verified 08/06/17 10:06 Home Medications: Home Medications Naproxen TAB* [Naprosyn 250 mg TAB*] 500 mg PO Q8H PRN 08/06/17 [History Confirmed 08/06/17] PMH/Surg Hx/FS Hx/Imm Hx Previously Healthy: No Psychological History: Anxiety - Surgical History Surgical History: None - Family History Known Family History: Positive: Hypertension Negative: Cardiac Disease, Diabetes - Social History Occupation: Unemployed Lives: With Family Alcohol Use: Rare Substance Use Type: None, Prescribed Smoking Status (MU): Never Smoked Tobacco - Immunization History Most Recent Influenza Vaccination: unk Most Recent Pneumonia Vaccination: unk Review of Systems Constitutional: Negative Skin: Negative Eyes: Negative ENT: Dental Pain Respiratory: Negative Cardiovascular: Negative Gastrointestinal: Negative Genitourinary: Negative Motor: Negative Neurovascular: Negative Musculoskeletal: Negative Neurological: Negative Psychological: Negative Is Patient Immunocompromised?: No All Other Systems Reviewed And Are Negative: Yes Physical Exam Triage Information Reviewed: Yes Appearance: Well-Appearing, No Pain Distress, Well-Nourished Vital Signs: Initial Vital Signs Temp 98.8 F 08/06/17 10:01 Pulse 98 08/06/17 10:01 Resp 14 08/06/17 10:01 BP 152/98 08/06/17 10:01 Pulse Ox 98 08/06/17 10:01 Vital Signs Reviewed: Yes Eye Exam: Normal Eyes: Positive: Conjunctiva Clear ENT Exam: Normal ENT: Positive: Normal ENT inspection, Hearing grossly normal, Pharynx normal, TMs normal, Dental tenderness, Uvula midline. Negative: Nasal congestion, Nasal drainage, Tonsillar swelling, Tonsillar exudate, Trismus, Muffled voice, Hoarse voice, Sinus tenderness Dental Exam: Normal Neck exam: Normal Neck: Positive: Supple, Nontender, No Lymphadenopathy Respiratory Exam: Normal Respiratory: Positive: Chest non-tender, Lungs clear, Normal breath sounds, No respiratory distress, No accessory muscle use Cardiovascular Exam: Normal Cardiovascular: Positive: RRR, No Murmur, Pulses Normal, Brisk Capillary Refill Musculoskeletal Exam: Normal Musculoskeletal: Positive: Strength Intact, ROM Intact, No Edema Neurological Exam: Normal Neurological: Positive: Alert, Muscle Tone Normal Psychological Exam: Normal Skin Exam: Normal Dental Complaint Course/Dx - Course Course Of Treatment: pain med, amoxicillin follow with dentist this week as planned - Differential Dx/Diagnosis Provider Diagnoses: elevated blood pressure with out dx of hypertension, dental abscess left upper jaw Discharge - Discharge Plan Condition: Stable Disposition: HOME Prescriptions: Amoxicillin PO (*) [Amoxicillin 500 MG CAP*] 500 mg PO TID #30 cap Hydrocodone-Acetaminophen [Hydrocodone/Acetaminophen 5-325 mg] 1 tab PO Q6H PRN #16 tab MDD 4 PRN Reason: Pain - Moderate To Severe Patient Education Materials: Dental Abscess (ED), Hypertension (ED) Referrals: [facility] REFERRAL [Outside] - 2 Weeks Mary Baptiste DDS,Kendrick Carreno [Doctor of Dental Surgery] - If Needed
== END 2017-08-06 10:32 | disposition home or self-care (01) ==
LOC: UCCORT 09:13
DX: K04.7 Periapical abscess without sinus (principal); R03.0 Elevated blood-pressure reading, without diagnosis of hypertension
CPT/HCPCS: 99212; G0463